=== PATIENT | male | born 1965 | race Caucasian/White ===

== ENCOUNTER 2018-09-17 08:25 | Day surgery (SDC) | payer OTHER ==
[2018-09-16 14:07] VITALS: BMI 38.7
[2018-09-17 09:51] VITALS: TEMP 97.9
[2018-09-17 11:04] VITALS: BP 121/72; PULSE 56
--- NOTE | 2018-09-18 18:15 | PATH ---
Surgical Pathology Report Patient Name: JANELLE SANTOS [facility]. Rec. #: [id number] /Age/Gender: 1965 (Age: 53) / M Account: [id number] Location: ASU-ENDOSCOPY Taken: 09/17/2018 Received: 09/17/2018 Reported: 09/18/2018 Physicians: Bola Brooks D.O. Specimen(s) Received A: BX CECUM POLYP B: BX PROXIMAL TRANSVERSE COLON C: BX SIGMOID ERYTHEMA D: POLYP SIGMOID Clinical History Colon screening, followup colitis Postoperative diagnosis: Diverticulosis, polyps Final Diagnosis A. CECUM POLYP, BIOPSY: COLONIC MUCOSA WITH FOCAL SURFACE HYPERPLASTIC CHANGE. B. PROXIMAL TRANSVERSE COLON, BIOPSY: COLONIC MUCOSA WITH MILD ACUTE INFLAMMATION IN THE LAMINA PROPRIA. NEGATIVE FOR CRYPTITIS AND CRYPT ABSCESS. NO ARCHITECTURAL FEATURES OF CHRONICITY PRESENT. C. SIGMOID ERYTHEMA, BIOPSY: COLONIC MUCOSA WITH FOCAL RECENT HEMORRHAGE IN THE LAMINA PROPRIA. NEGATIVE FOR COLITIS. D. SEGMENT POLYP POLYPECTOMY: HYPERPLASTIC POLYP. Electronically Signed Francisco Lion M.D. Gross Description A. Received in formalin, labeled "polyp cecum" are 2 shay, irregular portions of soft tissue measuring 0.3 and 0.5 cm. in greatest dimension. The specimens are submitted in toto in one cassette. B. Received in formalin, labeled "proximal transverse colon" are 2 shay, irregular portions of soft tissue measuring 0.1 and 0.2 cm. in greatest dimension. The specimens are submitted in toto in one cassette. C. Received in formalin, labeled "sigmoid" are 2 shay, irregular portions of soft tissue measuring 0.1 and 0.2 cm. in greatest dimension. The specimens are submitted in toto in one cassette. D. Received in formalin, labeled "polyp sigmoid" is a shay, irregular portion of soft tissue measuring 0.2 cm. in greatest dimension. The specimen is submitted in toto in one cassette. 09/17/201809/17/2018
== END 2018-09-17 11:04 | disposition home or self-care (01) ==
LOC: JASU-ENDO 08:25
PROVIDERS: ATTEND Internal Medicine Gastroenterology
PROC: 0DBH8ZX Excision of Cecum, Via Natural or Artificial Opening Endoscopic, Diagnostic (ICD-10-PCS; 2018-09-17)
PROC: 0DBL8ZX Excision of Transverse Colon, Via Natural or Artificial Opening Endoscopic, Diagnostic (ICD-10-PCS; 2018-09-17)
PROC: 0DBN8ZX Excision of Sigmoid Colon, Via Natural or Artificial Opening Endoscopic, Diagnostic (ICD-10-PCS; 2018-09-17)
PROC: 0DBN8ZX Excision of Sigmoid Colon, Via Natural or Artificial Opening Endoscopic, Diagnostic (ICD-10-PCS; principal; 2018-09-17 09:00)
DX: Z12.11 Encounter for screening for malignant neoplasm of colon (principal); D12.5 Benign neoplasm of sigmoid colon; K63.89 Other specified diseases of intestine; K57.30 Diverticulosis of large intestine without perforation or abscess without bleeding; K63.5 Polyp of colon; I10 Essential (primary) hypertension; E78.00 Pure hypercholesterolemia, unspecified; E11.9 Type 2 diabetes mellitus without complications; J45.909 Unspecified asthma, uncomplicated
CPT/HCPCS: 88305-TC

== ENCOUNTER 2019-09-10 20:07 | Inpatient (IN) | payer OTHER ==
[2019-09-10 20:11] VITALS: BMI 38.0
--- NOTE | 2019-09-10 20:11 | PDOC ---
Rapid Medical Evaluation Time Seen by Provider: 09/10/19 20:08 Medical Evaluation: Allergies Allergy/AdvReac Type Severity Reaction Status Date / Time No Known Allergies Allergy Verified 06/08/18 13:22 09/10/19 20:09 Pt c/o: abd pain worse after having soft BM, + nausea/vomit x 2, no fever, no urinary complaints, decreased solid intake Pt on brief exam: vss, no cva tenderness, mild epigastric tenderness Pt ordered for: labs, ua, fluids Pt to proceed to the Discharge Disposition - Diagnosis Colitis - Discharge Dispostion Disposition: HOME Condition at time of disposition: Good - Referrals - Patient Instructions - Post Discharge Activity
[2019-09-10] MEDS ORDERED: SODIUM CHLORIDE 1,000 ML IV STA (20:12)
--- NOTE | 2019-09-10 21:10 | PDOC ---
History of Present Illness - General Chief Complaint: Pain Stated Complaint: ABD PAIN Time Seen by Provider: 09/10/19 20:08 History Source: Patient Exam Limitations: No Limitations - History of Present Illness Travel History: No Initial Comments: 09/10/19 21:05 HISTORY OF PRESENT ILLNESS: 54-year-old male presents emergency department for evaluation of epigastric pain, nausea and shortness of breath. Patient reports he called his primary doctor after he received a CAT scan yesterday and requested asthma medication but was told if he was having asthma symptoms he should come to the emergency department. Patient did not feel that he needed to be in the emergency department and went home to have dinner. He drank soup for dinner but began to feel epigastric pain and bloating. He reported he had a large bowel movement this morning which helped relieve his pain initially and then vomited relieving the epigastric pain. He noticed progressively gotten more short of breath throughout the day today. He denies fevers, chills, chest pain, dysuria, hematuria, urinary frequency, rectal bleeding or diarrhea. No recent travel or sick contacts. PAST MEDICAL HISTORY: NIDDM, hypertension, hyperlipidemia, asthma SURGICAL HISTORY: Hernia repair see HPI ALLERGIES: No known drug allergies REVIEW OF SYSTEMS General/Constitutional: Denies fever or chills. Denies weakness, weight change. HEENT: Denies change in vision. Denies ear pain or discharge. Denies sore throat. Cardiovascular: Denies chest pain or shortness of breath. Respiratory: See HPI Gastrointestinal: See HPI Genitourinary: Denies dysuria, frequency, or change in urination. Musculoskeletal: Denies joint or muscle swelling or pain. Denies neck or back pain. Skin and breasts: Denies rash or easy bruising. Neurologic: Denies headache, vertigo, loss of consciousness, or loss of sensation. Psychiatric: Denies depression or anxiety. Endocrine: Denies increased thirst. Denies abnormal weight change. Hematologic/Lymphatic: Denies anemia, easy bleeding, or history of blood clots. Allergic/Immunologic: Denies hives or skin allergy. Denies latex allergy. PHYSICAL EXAM General Appearance: Well-appearing, appropriately dressed. No apparent distress , no intoxication. HEENT: EOMI, PERRLA, normal ENT inspection, normal voice, TMs normal, pharynx normal. No conjunctival pallor. No photophobia, scleral icterus. Neck: Supple. Trachea midline. No tenderness, rigidity, carotid bruit, stridor , lymphadenopathy, or thyromegaly. Respiratory/Chest: Lungs diminished on left side. No chest tenderness, respiratory distress, accessory muscle use. Diffuse wheezing present. No crackles, rales, rhonchi, stridor, dullness. Tachypnea present upon exam. Cardiovascular: RRR. S1, S2. No JVD, murmur, bradycardia, tachycardia. Vascular Pulses: Dorsalis-Pedis (R): 2+, Dorsalis-Pedis (L): 2+ Gastrointestinal/Abdominal: Normal bowel sounds. Abdomen soft, non-distended. Epigastric tenderness without guarding. No organomegaly, pulsatile mass, guarding, hernia, hepatomegaly, splenomegaly. Lymphatic: No adenopathy, tenderness. Musculoskeletal/Extremities: Normal inspection. FROM of all extremities, normal capillary refill. Pelvis Stable. No CVA tenderness. No tenderness to extremities, pedal edema, swelling, erythema or deformity. Integumentary: Appropriate color, warm. +diaphoresis. No cyanosis, erythema, jaundice or rash Neurologic: machine dyer II-XII intact. Fully oriented, alert. Appropriate mood/affect. Motor strength 5/5. No appreciable EOM palsy, facial droop or sensory deficit. 09/11/19 02:10 Past History - Past Medical History Allergies/Adverse Reactions: Allergies Allergy/AdvReac Type Severity Reaction Status Date / Time No Known Allergies Allergy Verified 09/10/19 20:11 Home Medications: Ambulatory Orders Albuterol Sulfate Inhaler - [Ventolin HFA Inhaler -] 1 - 2 inh PO Q4H 06/08/18 Aspirin [ASA -] 81 mg PO DAILY 06/08/18 Atorvastatin Ca [Lipitor] 10 mg PO HS 06/08/18 Budesonide/Formeterol Fumarate [SYMBICORT 160/4.5mcg -] 1 inh PO BID 06/08/18 Hydrochlorothiazide [Hctz -] 25 mg PO DAILY 06/08/18 Lisinopril [Prinivil] 20 mg PO DAILY 06/08/18 metFORMIN HCL [Metformin HCl] 850 mg PO BID 06/08/18 Salmeterol/Fluticasone [Advair 100Mcg/50Mcg -] 1 inh PO BID 09/11/19 Anemia: No Asthma: Yes Cancer: No Cardiac Disorders: No CVA: No COPD: No CHF: No Dementia: No Diabetes: Yes Dialysis: Yes GI Disorders: Yes (DIVERTICULITIS) Disorders: No HTN: Yes Hypercholesterolemia: Yes Liver Disease: No Seizures: No Thyroid Disease: No - Surgical History Abdominal Surgery: Yes Appendectomy: No Cardiac Surgery: No Cholecystectomy: No Lung Surgery: No Neurologic Surgery: No Orthopedic Surgery: Yes (LEFT KNEE ARTHROSCOPY) - Psycho Social/Smoking Cessation Hx Smoking History: Never smoked Have you smoked in the past 12 months: No If you are a former smoker, when did you quit?: many years ago Hx Alcohol Use: Yes (rare) Drug/Substance Use Hx: Yes (MARIJUANA) Substance Use Type: None Hx Substance Use Treatment: No *Physical Exam - Vital Signs Last Vital Signs Temp Pulse Resp BP Pulse Ox 98.0 F 79 18 132/79 97 09/10/19 20:08 09/10/19 20:08 09/10/19 20:08 09/10/19 20:08 09/10/19 20:08 ED Treatment Course - LABORATORY CBC & Chemistry Diagram: 09/11/19 05:55 09/11/19 05:55 - RADIOLOGY Radiology Studies Ordered: Category Date Time Status CHEST PA & LAT [RAD] Stat Radiology 09/10/19 20:51 Ordered Medical Decision Making - Medical Decision Making 09/10/19 21:09 A/P: 54-year-old male with epigastric pain, nausea and shortness of breath As patient is diabetic with hypertension high cholesterol I cannot exclude cardiac involvement at this time. Differential diagnosis includes but is not limited to pneumonia, hiatal hernia, pulmonary embolism, ACS, arrhythmia, obstruction, pancreatitis Labs including lipase, cardiac profile and d-dimer Chest x-ray EKG Combivent nebulizers x4 Reassess 09/11/19 01:56 EKG sinus rhythm with rate of 62. Normal intervals present. QTc 460 ms. Normal axis. No ischemic changes noted. CT of the abdomen and pelvis is read by imaging on-call: Uncomplicated mild to moderate ascending colitis may be due to infection or Crohn's disease. CTA of the chest as read by imaging on-call: No evidence of PE but there was mild suboptimal opacification of the pulmonary arteries. There is no aortic aneurysm or dissection. Heart size is normal. The trachea and bronchi are patent. There is no pleural or pericardial effusion. Lungs are clear. No fractures identified. The upper abdominal structures are normal. Blood cultures with lactate Flagyl 500 mg IV now Levaquin 500 mg Contact hospitalist service for admission. 09/11/19 01:57 Laboratory Tests 09/10/19 09/10/19 09/10/19 22:10 22:10 22:10 WBC 20.2 H Hgb 15.1 Hct 44.9 Plt Count 312 D D-Dimer Sodium 138 Potassium 4.3 Chloride 100 Carbon Dioxide 29 BUN 18.9 H Creatinine 0.9 Est GFR (CKD-EPI)NonAf 97.85 Random Glucose 139 H Calcium 9.9 Magnesium 1.8 Total Bilirubin 0.8 AST 19 ALT 29 Alkaline Phosphatase 84 Creatine Kinase 117 Troponin I < 0.02 B-Natriuretic Peptide Total Protein 7.4 Albumin 3.9 Lipase 45 L 09/10/19 09/10/19 22:10 22:10 WBC Hgb Hct Plt Count D-Dimer 879 H Sodium Potassium Chloride Carbon Dioxide BUN Creatinine Est GFR (CKD-EPI)NonAf Random Glucose Calcium Magnesium Total Bilirubin AST ALT Alkaline Phosphatase Creatine Kinase Troponin I B-Natriuretic Peptide 252.4 H Total Protein Albumin Lipase Urinalysis is unremarkable. Discharge - Discharge Information Problems reviewed: Yes Clinical Impression/Diagnosis: Colitis - Follow up/Referral - Patient Discharge Instructions - Post Discharge Activity
[2019-09-10] MEDS ORDERED: ALBUTEROL SO4 2.5/IPRATROPIUM 0.5 INH SOL 3 ML VIAL.NEB. NEB ONE (21:58)
[2019-09-10] MEDS: ALBUTEROL SO4 2.5/IPRATROPIUM 0.5 INH SOL 3 ML VIAL.NEB. NEB SCH ×2 (22:00→22:15)
[2019-09-10 22:25] LABS: BASO % 1.3 % (0-2.0); EOS % 0.2 % (0-4.5); HEMATOCRIT 44.9 % (35.4-49); HEMOGLOBIN 15.1 GM/dL (11.7-16.9); MCH 30.3 pg (25.7-33.7); MCHC 33.5 g/dl (32.0-35.9); MEAN CELL VOLUME 90.4 fl (80-96); MEAN PLT VOLUME 8.2 fl (7.5-11.1); MONO % 4.2 % (3.8-10.2); NEUT % 79.3 % (42.8-82.8); PLATELET COUNT 312 K/MM3 (134-434); RBC 4.97 M/mm3 (4.00-5.60); RDW 13.7 % (11.9-15.9); WHITE BLOOD COUNT 20.2 K/mm3 (4.0-10.0)
[2019-09-10 22:55] LABS: ALBUMIN 3.9 g/dl (3.4-5.0); BILIRUBIN,TOTAL 0.8 mg/dL (0.2-1); BLOOD UREA NITROGEN 18.9 mg/dL (7-18); CALCIUM 9.9 mg/dL (8.5-10.1); CREATININE 0.9 mg/dL (0.55-1.3); POTASSIUM 4.3 mmol/L (3.5-5.1); TOT PROT 7.4 g/dl (6.4-8.2)
[2019-09-10 22:56] LABS: MAGNESIUM 1.8 mg/dL (1.8-2.4)
[2019-09-10 23:25] LABS: PLATELET ESTIMATE NORMAL
[2019-09-11 00:21] LABS: PH,URINE 8.5 (5.0-8.0); URINE APPEARANCE CLEAR; URINE BILIRUBIN NEGATIVE (NEGATIVE); URINE COLOR YELLOW; URINE GLUCOSE (UA) NEGATIVE (NEGATIVE); URINE KETONE 2+ (NEGATIVE); URINE LEUK ESTERASE NEGATIVE (NEGATIVE); URINE NITRITE NEGATIVE (NEGATIVE); URINE PROTEIN NEGATIVE (NEGATIVE); URINE UROBILINOGEN 0.2 mg/dL (0.2-1.0)
--- NOTE | 2019-09-11 02:30 | PN ---
Teaching Attending Note Name of Resident: Sunny Brannon ATTENDING PHYSICIAN STATEMENT I saw and evaluated the patient. I reviewed the resident's note and discussed the case with the resident. I agree with the resident's findings and plan as documented. SUBJECTIVE: Patient is a 54 year old man with PMH of NIDDM, Hypertension, Hyperlipidemia, Lung nodule and Asthma presents to the ER for evaluation of epigastric pain, nausea and shortness of breath. Patient reports he called his primary doctor after he received a CAT scan yesterday and requested asthma medication but was told if he was having asthma symptoms he should come to the emergency department. Patient did not feel that he needed to be in the emergency department and went home to have dinner. He drank soup for dinner but began to feel epigastric pain and bloating. He reported he had a large bowel movement this morning which helped relieve his pain initially and then vomited relieving the epigastric pain. He noticed progressively gotten more short of breath throughout the day today. Smokes marijuana. FH of asthma, DM and lung cancer. He denies fevers, chills, chest pain, dysuria, hematuria, urinary frequency, rectal bleeding or diarrhea. No recent travel or sick contacts. Had a normal colonoscopy last year. OBJECTIVE: Alert Vital Signs Period Temp Pulse Resp BP Sys/Dykes Pulse Ox Last 24 Hr 98.0 F 79 18 132/79 97 HEENT: No Jaundice, eye redness or discharge, PERRLA, EOMI. Normocephalic, atraumatic. External ears are normal and hearing is grossly intact. No nasal discharge. Neck: Supple, nontender. No palpable adenopathy or thyromegaly. No JVD Chest: Good effort. Clear to auscultation and percussion. Heart: Regular. No S3, rub or murmur Abdomen: Not distended, soft, epigastric tenderness and no HSM. No rebound or guarding. Normal bowel sounds. Ext: Peripheral pulses intact. No leg edema. Skin: Warm and dry. No petechiae, rash or ecchymosis. Neuro: Alert. Oriented x3. CN 2-12 grossly intact. Sensation grossly intact in all four extremities and DTR are symmetric. Psych: Appropriate mood and affect. Good insight. Current Medications Generic Name Dose Route Start Last Admin Trade Name Freq PRN Reason Stop Dose Admin Enoxaparin Sodium 40 mg 09/11/19 10:00 Lovenox - SQ DAILY [facility] Sodium Chloride 1,000 mls @ 100 mls/hr 09/11/19 03:00 Normal Saline - IV ASDIR [facility] Insulin Aspart 0 vial 09/11/19 07:00 Novolog Vial Sliding Scale - SQ TIDAC [facility] Protocol Home Medications Medication Instructions Recorded Albuterol Sulfate Inhaler - 1 - 2 inh PO Q4H 06/08/18 [Ventolin HFA Inhaler -] Aspirin [ASA -] 81 mg PO DAILY 06/08/18 Atorvastatin Ca [Lipitor] 10 mg PO HS 06/08/18 Budesonide/Formeterol Fumarate 1 inh PO BID 06/08/18 [SYMBICORT 160/4.5mcg -] Hydrochlorothiazide [Hctz -] 25 mg PO DAILY 06/08/18 Lisinopril [Prinivil] 20 mg PO DAILY 06/08/18 metFORMIN HCL [Metformin HCl] 850 mg PO BID 06/08/18 Abnormal Lab Results 09/10/19 09/10/19 09/10/19 22:10 22:10 22:10 WBC 20.2 H Absolute Neuts (auto) 16.0 H Monocytes % (Manual) 1 L D D-Dimer BUN 18.9 H Random Glucose 139 H B-Natriuretic Peptide 252.4 H Lipase 45 L Urine pH Urine Ketones 09/10/19 09/10/19 22:10 23:55 WBC Absolute Neuts (auto) Monocytes % (Manual) D-Dimer 879 H BUN Random Glucose B-Natriuretic Peptide Lipase Urine pH 8.5 H D Urine Ketones 2+ H ASSESSMENT AND PLAN: 1. Colitis - CT of the abdomen and pelvis is read by imaging on-call showed "uncomplicated mild to moderate ascending colitis which may be due to infection or Crohn's disease. CTA of the chest as read by imaging on-call: No evidence of PE but there was mild suboptimal opacification of the pulmonary arteries. There is no aortic aneurysm or dissection. Heart size is normal. The trachea and bronchi are patent. There is no pleural or pericardial effusion. Lungs are clear. No fractures identified. The upper abdominal structures are normal." Patient started on Flagyl 500 mg IV now Levaquin 500 mg and IV NS. EKG shows NSR with no ischemic changes. Will continue comprehensive care for all of patients comorbid conditions. 2. DM For now, we will hold the home diabetes drugs and implement sliding scale insulin regimen. Provide comprehensive diabetes care with patient teaching and counseling about the importance of adherence to prescribed diabetes regimen, euglycemia, eye care and foot care. 3. Obesity Counseled on the risks associated with obesity. Will provide patient all the necessary assistance, counseling and positive reinforcement to facilitate weight loss. Consult commercial tire service technician. 4. Hypertension - Restart suitable outpatient antihypertensive drugs when clinically appropriate. Revise regimen to ensure [id number] excellent BP control and credit counselor patient on the injurious effects of uncontrolled hypertension. Nonpharmacologic measures to control hypertension like weight loss , salt restriction and exercise discussed. Importance of adherence to treatment regimen and attainment of normotension emphasized. 5. DVT prophylaxis - Lovenox 40 mg SQ q 24 hours. 6. Advance directives - Full code
--- NOTE | 2019-09-11 03:04 | HP ---
CHIEF COMPLAINT: Abdominal Pain PCP: Dr. Ilene Bello HISTORY OF PRESENT ILLNESS: A 54 y/o F with a PMHx of HTN, HLD, DM, Asthma, who presents after experiencing 8/10 midepigastric achyness after eating soup at 10pm on sunday. Pt notes the pain is associated with bloating, and improves with vomiting and defecating. He had 2 bouts of nbnb emesis and a bm consistent of soft stool. He is able to pass flatus which helps with the pain as well. He admits to sob due to the pain, cold sweats, and loss of appetite. He hasn't eaten anything since then. His hx is notable for having an episode of colitis in may of 2018 and a colonoscopy that was normal shortly after that. He denies any GERD, fevers, back pain, calf pain, dysuria, diarrhea, constipation, or hematuria. He was sent here by his PCP (Dr. Bello) a week ago to follow up a 5mm pulmonary nodule and due to his asthma symptoms. ER course was notable for: (1) ekg- nsr lipase- 45 (2) trop negative, d dimer- 879, cta negative for PE (3) CT abd- colitis, Recent Travel: denies PAST MEDICAL HISTORY: refer to HPI PAST SURGICAL HISTORY: inguinal hernia repair (20 y/o), meniscal tear repair ( 2016) Social History: Smoking: marijuana 1/wk Alcohol: denies Drugs: denies Allergies No Known Allergies Allergy (Verified 09/10/19 20:11) HOME MEDICATIONS: Home Medications Medication Instructions Recorded Albuterol Sulfate Inhaler - 1 - 2 inh PO Q4H 06/08/18 [Ventolin HFA Inhaler -] Aspirin [ASA -] 81 mg PO DAILY 06/08/18 Atorvastatin Ca [Lipitor] 10 mg PO HS 06/08/18 Budesonide/Formeterol Fumarate 1 inh PO BID 06/08/18 [SYMBICORT 160/4.5mcg -] Hydrochlorothiazide [Hctz -] 25 mg PO DAILY 06/08/18 Lisinopril [Prinivil] 20 mg PO DAILY 06/08/18 metFORMIN HCL [Metformin HCl] 850 mg PO BID 06/08/18 REVIEW OF SYSTEMS negative except those listed above PHYSICAL EXAMINATION Vital Signs - 24 hr 09/10/19 20:08 Temperature 98.0 F Pulse Rate 79 Respiratory 18 Rate Blood Pressure 132/79 O2 Sat by Pulse 97 Oximetry (%) GENERAL: Awake, alert, and fully oriented, in no acute distress. HEAD: Normal with no signs of trauma. EYES: Pupils equal, round and reactive to light, extraocular movements intact, sclera anicteric, conjunctiva clear. opthalmoscopic exam showing no AV nicking, cotton wool exudates, no erythema. EARS, NOSE, THROAT: Ears normal, nares patent, oropharynx clear without exudates. NECK: Normal range of motion, supple without lymphadenopathy, JVD, or masses. LUNGS: poor air entry that improved with chest pt HEART: Regular rate and rhythm, normal S1 and S2 without murmur, rub or gallop. ABDOMEN: Soft, nontympanitic, not distended, hypoactive bowel sounds, midepigastric tenderness to palpation, no pulsatile mass present, MUSCULOSKELETAL: Normal range of motion at all joints. No bony deformities or tenderness. UPPER EXTREMITIES: 2+ pulses, warm, well-perfused. No peripheral edema. LOWER EXTREMITIES: 2+ pulses, warm, well-perfused. No calf tenderness. No peripheral edema. Laboratory Results - last 24 hr 09/10/19 09/10/19 09/10/19 22:10 22:10 22:10 WBC 20.2 H RBC 4.97 Hgb 15.1 Hct 44.9 MCV 90.4 MCH 30.3 MCHC 33.5 RDW 13.7 Plt Count 312 D MPV 8.2 Absolute Neuts (auto) 16.0 H Neutrophils % 79.3 D Neutrophils % (Manual) 77.0 Band Neutrophils % 0.0 Lymphocytes % 15.0 D Lymphocytes % (Manual) 16.0 D Monocytes % 4.2 Monocytes % (Manual) 1 L D Eosinophils % 0.2 D Eosinophils % (Manual) 0.0 Basophils % 1.3 Basophils % (Manual) 0.0 Myelocytes % (Man) 0 Promyelocytes % (Man) 0 Blast Cells % (Manual) 0 Nucleated RBC % 0 Metamyelocytes 0 Platelet Estimate Normal D-Dimer Sodium 138 Potassium 4.3 Chloride 100 Carbon Dioxide 29 Anion Gap 8 BUN 18.9 H Creatinine 0.9 Est GFR (CKD-EPI)AfAm 113.41 Est GFR (CKD-EPI)NonAf 97.85 Random Glucose 139 H Calcium 9.9 Magnesium 1.8 Total Bilirubin 0.8 AST 19 ALT 29 Alkaline Phosphatase 84 Creatine Kinase 117 Troponin I < 0.02 B-Natriuretic Peptide Total Protein 7.4 Albumin 3.9 Lipase 45 L Urine Color Urine Appearance Urine pH Ur Specific [place] Urine Protein Urine Glucose (UA) Urine Ketones Urine Blood Urine Nitrite Urine Bilirubin Urine Urobilinogen Ur Leukocyte Esterase ASSESSMENT/PLAN: A 54 y/o F with a PMHx of HTN, HLD, DM, Asthma, who presents after experiencing 8/10 midepigastric achyness after eating soup at 10pm on sunday. #Acute colitis - CT abd- colitis - lipase 45 - npo bowel rest, IVF - stool o&p, c&s, calprotectin - c/w IV levaquin 500 and flagyl 500 - afebrile - leukocytosis 20.2 will continue to trend - Mg, Phos - recommend high residue diet to prevent reocurrence #R/O PE - d dimer 879 - CTA negative for PE #Pulmonary nodule - recent Chest CT showing 3mm nodule, rt renal cyst, diverticulosis, atelectasis in lingula follow up with pulmonary and pcp - no change since previous - pt has hx of lung ca in mother #Asthma - Albuterol PRN #Starvation ketosis - UA 2+ketones - UA 8.5pH - pt hasnt eaten in 2 days - rpt in am and follow up with pcp if persists despite po intake #DM - ISS - TIDAC #HTN - continue lisinopril 20, HCTZ 25 PO daily #HLD - continue statin Visit type - Emergency Visit Emergency Visit: Yes ED Registration Date: 09/11/19 Care time: The patient presented to the Emergency Department on the above date and was hospitalized for further evaluation of their emergent condition. - New Patient This patient is new to me today: Yes Date on this admission: 09/11/19 - Critical Care Critical Care patient: No ATTENDING PHYSICIAN STATEMENT I saw and evaluated the patient. I reviewed the resident's note and discussed the case with the resident. I agree with the resident's findings and plan as documented. SUBJECTIVE: OBJECTIVE: ASSESSMENT AND PLAN:
[2019-09-11] MEDS: SODIUM CHLORIDE 1,000 ML IV SCH ×2 (03:32→18:04)
[2019-09-11 06:12] LABS: HEMATOCRIT 41.5 % (35.4-49); HEMOGLOBIN 14.1 GM/dL (11.7-16.9); MCH 30.3 pg (25.7-33.7); MCHC 34.1 g/dl (32.0-35.9); MEAN PLT VOLUME 7.9 fl (7.5-11.1); PLATELET COUNT 307 K/MM3 (134-434); RBC 4.66 M/mm3 (4.00-5.60); RDW 13.8 % (11.9-15.9); WHITE BLOOD COUNT 16.4 K/mm3 (4.0-10.0)
[2019-09-11 06:29] LABS: ALBUMIN 3.7 g/dl (3.4-5.0); BILIRUBIN,TOTAL 0.6 mg/dL (0.2-1); CREATININE 0.9 mg/dL (0.55-1.3); PHOSPHOROUS 3.4 mg/dL (2.5-4.9); POTASSIUM 3.7 mmol/L (3.5-5.1); TOT PROT 6.9 g/dl (6.4-8.2)
[2019-09-11] MEDS: INSULIN SLIDING SCALE (NOVOLOG) 1 VIAL SQ SCH ×3 (06:49→16:43)
[2019-09-11] MEDS ORDERED: INSULIN SLIDING SCALE (NOVOLOG) 1 VIAL SQ SCH (07:00)
[2019-09-11] MEDS ORDERED: ENOXAPARIN NA (PORCINE) 40 MG/0.4 ML DISP.SYRIN SQ ONE (09:56)
[2019-09-11] MEDS: ENOXAPARIN NA (PORCINE) 40 MG/0.4 ML DISP.SYRIN SQ SCH (10:05)
--- NOTE | 2019-09-11 12:38 | EKG ---
Test Reason : Blood Pressure : / mmHG Vent. Rate : 062 BPM Atrial Rate : 062 BPM P-R Int : 146 ms QRS Dur : 100 ms QT Int : 454 ms P-R-T Axes : 013 066 041 degrees QTc Int : 460 ms NORMAL SINUS RHYTHM NORMAL ECG WHEN COMPARED WITH ECG OF 09-JUN-2018 14:51, NO SIGNIFICANT CHANGE WAS FOUND Confirmed by GIANNA WILCOX MD ([id number]) on 09/11/2019 12:38:02 PM Referred By: Confirmed By:GIANNA WILCOX MD
--- NOTE | 2019-09-11 13:46 | PN ---
Physical Exam: SUBJECTIVE: Patient seen and examined in the ED awaiting bed assignment. denies any nausea/vomiting or abdominal pain. OBJECTIVE: Patient is a 54 year old male with a past medical history of colitis, hypertension, hyperlipidemia, diabetes and asthma who presented to the ED with abdominal pain and found to have acute right sided colitis on ct scan. Vital Signs Period Temp Pulse Resp BP Sys/Dykes Pulse Ox Last 24 Hr 98.0 F-98.0 F 60-79 18-20 104-132/57-79 97-98 GENERAL: The patient is awake, alert, and fully oriented, in no acute distress. HEAD: Normal with no signs of trauma. EYES: PERRL, extraocular movements intact, sclera anicteric, conjunctiva clear. No ptosis. ENT: Ears normal, nares patent, oropharynx clear without exudates, moist mucous membranes. NECK: Trachea midline, full range of motion, supple. LUNGS: Breath sounds equal, clear to auscultation bilaterally, no wheezes, no crackles, no accessory muscle use. HEART: Regular rate and rhythm ABDOMEN: Soft, nontender, nondistended, normoactive bowel sounds, no guarding, no rebound, no hepatosplenomegaly, no masses. EXTREMITIES: no edema. NEUROLOGICAL: Normal speech, gait not observed. PSYCH: Normal mood, normal affect. SKIN: Warm, dry, normal turgor, no rashes or lesions noted Laboratory Results - last 24 hr 09/10/19 09/10/19 09/10/19 22:10 22:10 22:10 WBC 20.2 H RBC 4.97 Hgb 15.1 Hct 44.9 MCV 90.4 MCH 30.3 MCHC 33.5 RDW 13.7 Plt Count 312 D MPV 8.2 Absolute Neuts (auto) 16.0 H Neutrophils % 79.3 D Neutrophils % (Manual) 77.0 Band Neutrophils % 0.0 Lymphocytes % 15.0 D Lymphocytes % (Manual) 16.0 D Monocytes % 4.2 Monocytes % (Manual) 1 L D Eosinophils % 0.2 D Eosinophils % (Manual) 0.0 Basophils % 1.3 Basophils % (Manual) 0.0 Myelocytes % (Man) 0 Promyelocytes % (Man) 0 Blast Cells % (Manual) 0 Nucleated RBC % 0 Metamyelocytes 0 Platelet Estimate Normal D-Dimer Sodium 138 Potassium 4.3 Chloride 100 Carbon Dioxide 29 Anion Gap 8 BUN 18.9 H Creatinine 0.9 Est GFR (CKD-EPI)AfAm 113.41 Est GFR (CKD-EPI)NonAf 97.85 POC Glucometer Random Glucose 139 H Calcium 9.9 Phosphorus Magnesium 1.8 Total Bilirubin 0.8 AST 19 ALT 29 Alkaline Phosphatase 84 Creatine Kinase 117 Troponin I < 0.02 B-Natriuretic Peptide Total Protein 7.4 Albumin 3.9 Lipase 45 L Urine Color Urine Appearance Urine pH Ur Specific [place] Urine Protein Urine Glucose (UA) Urine Ketones Urine Blood Urine Nitrite Urine Bilirubin Urine Urobilinogen Ur Leukocyte Esterase 09/10/19 09/10/19 09/10/19 22:10 22:10 23:55 WBC RBC Hgb Hct MCV MCH MCHC RDW Plt Count MPV Absolute Neuts (auto) Neutrophils % Neutrophils % (Manual) Band Neutrophils % Lymphocytes % Lymphocytes % (Manual) Monocytes % Monocytes % (Manual) Eosinophils % Eosinophils % (Manual) Basophils % Basophils % (Manual) Myelocytes % (Man) Promyelocytes % (Man) Blast Cells % (Manual) Nucleated RBC % Metamyelocytes Platelet Estimate D-Dimer 879 H Sodium Potassium Chloride Carbon Dioxide Anion Gap BUN Creatinine Est GFR (CKD-EPI)AfAm Est GFR (CKD-EPI)NonAf POC Glucometer Random Glucose Calcium Phosphorus Magnesium Total Bilirubin AST ALT Alkaline Phosphatase Creatine Kinase Troponin I B-Natriuretic Peptide 252.4 H Total Protein Albumin Lipase Urine Color Yellow Urine Appearance Clear Urine pH 8.5 H D Ur Specific [place] 1.025 Urine Protein Negative Urine Glucose (UA) Negative Urine Ketones 2+ H Urine Blood Negative Urine Nitrite Negative Urine Bilirubin Negative Urine Urobilinogen 0.2 Ur Leukocyte Esterase Negative 09/11/19 09/11/19 09/11/19 05:55 05:55 11:06 WBC 16.4 H RBC 4.66 Hgb 14.1 Hct 41.5 MCV 89.0 MCH 30.3 MCHC 34.1 RDW 13.8 Plt Count 307 MPV 7.9 Absolute Neuts (auto) Neutrophils % Neutrophils % (Manual) Band Neutrophils % Lymphocytes % Lymphocytes % (Manual) Monocytes % Monocytes % (Manual) Eosinophils % Eosinophils % (Manual) Basophils % Basophils % (Manual) Myelocytes % (Man) Promyelocytes % (Man) Blast Cells % (Manual) Nucleated RBC % Metamyelocytes Platelet Estimate D-Dimer Sodium 138 Potassium 3.7 Chloride 101 Carbon Dioxide 29 Anion Gap 7 L BUN 16.0 Creatinine 0.9 Est GFR (CKD-EPI)AfAm 113.41 Est GFR (CKD-EPI)NonAf 97.85 POC Glucometer 151 Random Glucose 143 H Calcium 9.0 Phosphorus 3.4 Magnesium 2.0 Total Bilirubin 0.6 AST 9 L ALT 25 Alkaline Phosphatase 75 Creatine Kinase Troponin I B-Natriuretic Peptide Total Protein 6.9 Albumin 3.7 Lipase Urine Color Urine Appearance Urine pH Ur Specific [place] Urine Protein Urine Glucose (UA) Urine Ketones Urine Blood Urine Nitrite Urine Bilirubin Urine Urobilinogen Ur Leukocyte Esterase 09/11/19 13:20 WBC RBC Hgb Hct MCV MCH MCHC RDW Plt Count MPV Absolute Neuts (auto) Neutrophils % Neutrophils % (Manual) Band Neutrophils % Lymphocytes % Lymphocytes % (Manual) Monocytes % Monocytes % (Manual) Eosinophils % Eosinophils % (Manual) Basophils % Basophils % (Manual) Myelocytes % (Man) Promyelocytes % (Man) Blast Cells % (Manual) Nucleated RBC % Metamyelocytes Platelet Estimate D-Dimer Sodium Potassium Chloride Carbon Dioxide Anion Gap BUN Creatinine Est GFR (CKD-EPI)AfAm Est GFR (CKD-EPI)NonAf POC Glucometer 133 Random Glucose Calcium Phosphorus Magnesium Total Bilirubin AST ALT Alkaline Phosphatase Creatine Kinase Troponin I B-Natriuretic Peptide Total Protein Albumin Lipase Urine Color Urine Appearance Urine pH Ur Specific [place] Urine Protein Urine Glucose (UA) Urine Ketones Urine Blood Urine Nitrite Urine Bilirubin Urine Urobilinogen Ur Leukocyte Esterase Active Medications Generic Name Dose Route Start Last Admin Trade Name Freq PRN Reason Stop Dose Admin Enoxaparin Sodium 40 mg 09/11/19 10:00 09/11/19 10:05 Lovenox - SQ 40 mg DAILY TJ Administration Sodium Chloride 1,000 mls @ 100 mls/hr 09/11/19 03:00 09/11/19 03:32 Normal Saline - IV 100 mls/hr ASDIR TJ Administration Metronidazole 500 mg in 100 mls @ 100 mls/hr 09/11/19 10:00 09/11/19 10:05 Flagyl 500mg Premixed Ivpb - IVPB 100 mls/hr Q8H-IV TJ Administration Levofloxacin 500 mg in 100 mls @ 100 mls/hr 09/12/19 06:00 Levaquin 500 Mg Premixed Ivpb - IVPB DAILY@0600 [facility] Protocol Insulin Aspart 1 vial 09/11/19 07:00 09/11/19 11:14 Novolog Vial Sliding Scale - SQ 2 unit TIDAC [facility] Administration Protocol ASSESSMENT/PLAN: Abdominal pain Acute colitis per CT imaging Patient without further abdominal pain, nausea or vomiting start trial of clears continue flagyl and levaquin monitor wbc with daily labs Gi consulted and recommendations appreciated. elevated d dimer PE ruled out with CTA Pulmonary nodule Recent Chest CT showing 3mm nodule, rt renal cyst, diverticulosis, atelectasis in lingula follow up with pulmonary and pcp Asthma not in acute exacerbation, allbuterol prn Diabetes controlled. on novolog Hypertension controlled, on lisinopril, hctz 50 HLD on statin Visit type - Emergency Visit Emergency Visit: Yes ED Registration Date: 09/11/19 Care time: The patient presented to the Emergency Department on the above date and was hospitalized for further evaluation of their emergent condition. - New Patient This patient is new to me today: Yes Date on this admission: 09/11/19 - Critical Care Critical Care patient: No - Discharge Referral Referred to [facility] No
[2019-09-11 19:46] LABS: EPI CELLS 0.4 /HPF (0-5/HPF); HYALINE CASTS 1 /lpf (0-8); URINE APPEARANCE CLEAR; URINE BACTERIA 0.8 /hpf (NEGATIVE); URINE BILIRUBIN NEGATIVE (NEGATIVE); URINE COLOR YELLOW; URINE GLUCOSE (UA) NEGATIVE (NEGATIVE); URINE KETONE NEGATIVE (NEGATIVE); URINE LEUK ESTERASE TRACE (NEGATIVE); URINE NITRITE NEGATIVE (NEGATIVE); URINE PROTEIN NEGATIVE (NEGATIVE); URINE RBC 2 /hpf (0-4); URINE WBC 0 /hpf (0-5)
--- NOTE | 2019-09-11 21:05 | CON.GI ---
Consult - Past Medical History Cardio/Vascular: Yes: HTN, Hyperlipdemia Pulmonary: Yes: Asthma Gastrointestinal: Yes: Other (RI) Musculoskeletal: Yes: Osteoarthritis Endocrine: Yes: Diabetes Mellitus - Past Surgical History Past Surgical History: Yes: Arthrosocopy (left knee), Hernia Repair (RI) - Alcohol/Substance Use Hx Alcohol Use: Yes (rare) History of Substance Use: reports: None - Smoking History Smoking history: Never smoked Have you smoked in the past 12 months: No If you are a former smoker, when did you quit?: many years ago - Social History Usual Living Arrangement: Other () ADL: Independent Occupation: [employer] History of Recent Travel: No Home Medications - Allergies Allergies/Adverse Reactions: Allergies Allergy/AdvReac Type Severity Reaction Status Date / Time No Known Allergies Allergy Verified 09/10/19 20:11 - Home Medications Home Medications: Ambulatory Orders Albuterol Sulfate Inhaler - [Ventolin HFA Inhaler -] 1 - 2 inh PO Q4H 06/08/18 Aspirin [ASA -] 81 mg PO DAILY 06/08/18 Atorvastatin Ca [Lipitor] 10 mg PO HS 06/08/18 Budesonide/Formeterol Fumarate [SYMBICORT 160/4.5mcg -] 1 inh PO BID 06/08/18 Hydrochlorothiazide [Hctz -] 25 mg PO DAILY 06/08/18 Lisinopril [Prinivil] 20 mg PO DAILY 06/08/18 metFORMIN HCL [Metformin HCl] 850 mg PO BID 06/08/18 Salmeterol/Fluticasone [Advair 100Mcg/50Mcg -] 1 inh PO BID 09/11/19 Physical Exam-GI Vital Signs: Vital Signs Temperature 97.8 F 09/11/19 17:45 Pulse Rate 68 09/11/19 17:45 Respiratory Rate 20 09/11/19 17:45 Blood Pressure 120/83 09/11/19 17:45 O2 Sat by Pulse Oximetry (%) 100 09/11/19 17:45 Labs: CBC, BMP 09/11/19 05:55 09/11/19 05:55
--- NOTE | 2019-09-11 21:09 | CON.GI ---
Consult Consult Specialty:: GI Referred by:: Hospitalist Service Reason for Consultation:: Abdominal pain - History of Present Illness Chief Complaint: upper abdominal pain History of Present Illness: 54M admitted thorough [facility] for evaluation of abdominal pain. Described the pain starting sunday evening, upper abdomen in location and associated with nausea and vomiting. He had some loose bowel movements as well. He underwent CTA of the chest to ? exclude PE and CT of the abdomen and pelvis that raised question of Right sided colitis. Had a similar episode of ? right sided colitis in 2018. he was evaluated by Dr. Shah at that time who fel that it reflected an episode of right sided ischemic coltis. He saw me in follow-up as outpatient. He underwent a follow-up colonoscopy that was unrevealing. Biopsy of the proximal transverse colon revealed mild acute colitis without chronicity. Nausea, vomiting has resolved. he currently denies abdominal pain. - History Source History Provided By: Patient, Medical Record - Past Medical History Cardio/Vascular: Yes: HTN, Hyperlipdemia Pulmonary: Yes: Asthma Gastrointestinal: Yes: Diverticulosis, Other (RIH) Musculoskeletal: Yes: Osteoarthritis Endocrine: Yes: Diabetes Mellitus - Past Surgical History Past Surgical History: Yes: Arthrosocopy (left knee), Hernia Repair (RIH) - Alcohol/Substance Use Hx Alcohol Use: Yes (rare) History of Substance Use: reports: None - Smoking History Smoking history: Never smoked Have you smoked in the past 12 months: No - Social History Usual Living Arrangement: Other () ADL: Independent 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 Place of : [facility] History of Recent Travel: No Home Medications - Allergies Allergies/Adverse Reactions: Allergies Allergy/AdvReac Type Severity Reaction Status Date / Time No Known Allergies Allergy Verified 09/10/19 20:11 - Home Medications Home Medications: Ambulatory Orders Albuterol Sulfate Inhaler - [Ventolin HFA Inhaler -] 1 - 2 inh PO Q4H 06/08/18 Aspirin [ASA -] 81 mg PO DAILY 06/08/18 Atorvastatin Ca [Lipitor] 10 mg PO HS 06/08/18 Budesonide/Formeterol Fumarate [SYMBICORT 160/4.5mcg -] 1 inh PO BID 06/08/18 Hydrochlorothiazide [Hctz -] 25 mg PO DAILY 06/08/18 Lisinopril [Prinivil] 20 mg PO DAILY 06/08/18 metFORMIN HCL [Metformin HCl] 850 mg PO BID 06/08/18 Salmeterol/Fluticasone [Advair 100Mcg/50Mcg -] 1 inh PO BID 09/11/19 Family Medical History Other Family History: Mother: : Pancreatic Ca, Dm II. Father: : 65: DM II. 7 siblings, one sister with narcolepsy, 1 brother has liver ca (alcoholic/ HCV) and history of colon polyps. 1 daughterL healthy. No family history of colon cancer, IBD Review of Systems - Review of Systems Constitutional: denies: Chills, Unintentional Wgt. Loss Cardiovascular: denies: Chest Pain Respiratory: denies: Cough Gastrointestinal: reports: Abdominal Pain, Diarrhea, Vomiting. denies: Constipation Physical Exam-GI Vital Signs: Vital Signs Temperature 97.8 F 09/11/19 17:45 Pulse Rate 68 09/11/19 17:45 Respiratory Rate 20 09/11/19 17:45 Blood Pressure 120/83 09/11/19 17:45 O2 Sat by Pulse Oximetry (%) 100 09/11/19 17:45 Constitutional: Yes: Calm Eyes: No: Sclera Icterus Cardiovascular: Yes: Regular Rate and Rhythm. No: Murmur Respiratory: Yes: CTA Bilaterally Gastrointestinal Inspection: No: Distention ...Auscultate: Yes: Normoactive Bowel Sounds ...Palpate: Yes: Soft. No: Hepatomegaly, Splenomegaly, Tenderness Edema: No (No LE edema) Neurological: Yes: Alert Labs: CBC, BMP 09/11/19 05:55 09/11/19 05:55 Problem List - Problems (1) Colitis Assessment/Plan: The epigastric pain does not fit a colitis piicture. He is currently pain free and had had no diarrhea. ? Resolved gastroenteritis Advance diet Continue Abx for now Given recurrence of right sided colitis episode and ? previous right sided ischemic colitis, Should have CTA of the abdomen to assess SMA. Would given him some time as he has already been given CTA dye load to ? exclude a PE. Code(s): K52.9 - NONINFECTIVE GASTROENTERITIS AND COLITIS, UNSPECIFIED
[2019-09-11] MEDS ORDERED: ATORVASTATIN CA 10 MG TABLET (FP) PO SCH (22:00)
[2019-09-11] MEDS: FLUTICASONE/SALMETEROL 100 MCG/50 MCG DISKUS IH SCH ×2 (22:47→23:00)
[2019-09-12] MEDS: SODIUM CHLORIDE 1,000 ML IV SCH ×2 (03:19→05:48)
[2019-09-12] MEDS: INSULIN SLIDING SCALE (NOVOLOG) 1 VIAL SQ SCH (06:09)
[2019-09-12 09:03] LABS: BASO % 0.3 % (0-2.0); HEMATOCRIT 41.7 % (35.4-49); MCH 30.2 pg (25.7-33.7); MCHC 33.5 g/dl (32.0-35.9); MEAN CELL VOLUME 90.3 fl (80-96); MEAN PLT VOLUME 8.5 fl (7.5-11.1); MONO % 6.5 % (3.8-10.2); NEUT % 62.2 % (42.8-82.8); PLATELET COUNT 283 K/MM3 (134-434); RBC 4.62 M/mm3 (4.00-5.60); RDW 13.7 % (11.9-15.9); WHITE BLOOD COUNT 12.8 K/mm3 (4.0-10.0)
[2019-09-12 09:31] LABS: ALBUMIN 3.4 g/dl (3.4-5.0); BILIRUBIN,TOTAL 0.9 mg/dL (0.2-1); BLOOD UREA NITROGEN 14.9 mg/dL (7-18); CALCIUM 8.7 mg/dL (8.5-10.1); CREATININE 0.9 mg/dL (0.55-1.3); POTASSIUM 3.8 mmol/L (3.5-5.1); TOT PROT 6.5 g/dl (6.4-8.2)
[2019-09-12] MEDS ORDERED: HYDROCHLOROTHIAZIDE 25 MG TABLET (FP) PO SCH (10:00)
[2019-09-12] MEDS ORDERED: BUDESONIDE/FORMETEROL FUMARATE 160/4.5 mcg INHALER IH SCH (10:00)
[2019-09-12] MEDS ORDERED: LISINOPRIL 20 MG TABLET (FP) PO SCH (10:00)
[2019-09-12] MEDS ORDERED: INSULIN (NOVOLOG) ASPART 100 UNITS/ML 10ML VIAL ONE (10:04)
--- NOTE | 2019-09-12 10:11 | PN.GI ---
GI Progress Note Subjective: No acute events States feeling well No abdominal pain Tolerating liquids - Objective Vital Signs: Vital Signs Temperature 97.9 F 09/12/19 04:53 Pulse Rate 64 09/12/19 04:53 Respiratory Rate 20 09/12/19 04:53 Blood Pressure 120/83 09/11/19 17:45 O2 Sat by Pulse Oximetry (%) 100 09/11/19 21:00 Constitutional: Calm Eyes: No: Sclera Icterus Cardiovascular: Yes: Regular Rate and Rhythm Respiratory: Yes: CTA Bilaterally Gastrointestinal Inspection: No: Scars ...Auscultate: Yes: Normoactive Bowel Sounds ...Palpate: Yes: Soft. No: Hepatomegaly, Splenomegaly, Tenderness Edema: No (No LE edema) Neurological: Yes: Alert Labs: CBC, BMP 09/12/19 07:25 09/12/19 07:25 Problem List - Problems (1) Colitis Assessment/Plan: Clinically appears well. No N/V, diarrhea or abdominal pain. ? resolved gastroenteritis Symptom improvement quite quick for ischemic colitis Advancing diet Given recurrence of ? inflammatory changes in the right colon, follow-up imaging with CTA of abdomen to assess SMA Code(s): K52.9 - NONINFECTIVE GASTROENTERITIS AND COLITIS, UNSPECIFIED
[2019-09-12] MEDS: ENOXAPARIN NA (PORCINE) 40 MG/0.4 ML DISP.SYRIN SQ SCH (10:19)
[2019-09-12 13:28] VITALS: BP 132/83; PULSE 60; TEMP 97.8
--- NOTE | 2019-09-12 15:16 | DS ---
Physical Exam: SUBJECTIVE: Patient seen and examined. for discharge today. OBJECTIVE: Patient is a 54 year old male with a past medical history of colitis, hypertension, hyperlipidemia, diabetes and asthma who presented to the ED with abdominal pain and found to have acute right sided colitis on ct scan. Vital Signs Period Temp Pulse Resp BP Sys/Dykes Pulse Ox Last 24 Hr 97.8 F-98.0 F 60-68 20-20 120-132/70-83 100-100 PHYSICAL EXAM GENERAL: The patient is awake, alert, and fully oriented, in no acute distress. HEAD: Normal with no signs of trauma. EYES: PERRL, extraocular movements intact, sclera anicteric, conjunctiva clear. No ptosis. ENT: Ears normal, nares patent, oropharynx clear without exudates, moist mucous membranes. NECK: Trachea midline, full range of motion, supple. LUNGS: Breath sounds equal, clear to auscultation bilaterally, no wheezes, no crackles, no accessory muscle use. HEART: Regular rate and rhythm ABDOMEN: Soft, nontender, nondistended, normoactive bowel sounds, no guarding, no rebound, no hepatosplenomegaly, no masses. EXTREMITIES: no edema. NEUROLOGICAL: Normal speech, gait not observed. PSYCH: Normal mood, normal affect. SKIN: Warm, dry, normal turgor, no rashes or lesions noted LABS Laboratory Results - last 24 hr 09/11/19 09/11/19 09/12/19 16:37 18:21 05:45 WBC RBC Hgb Hct MCV MCH MCHC RDW Plt Count MPV Absolute Neuts (auto) Neutrophils % Lymphocytes % Monocytes % Eosinophils % Basophils % Nucleated RBC % Sodium Potassium Chloride Carbon Dioxide Anion Gap BUN Creatinine Est GFR (CKD-EPI)AfAm Est GFR (CKD-EPI)NonAf POC Glucometer 174 137 Random Glucose Calcium Magnesium Total Bilirubin AST ALT Alkaline Phosphatase Total Protein Albumin TSH Urine Color Yellow Urine Appearance Clear Urine pH 6.0 D Ur Specific [place] 1.017 Urine Protein Negative Urine Glucose (UA) Negative Urine Ketones Negative Urine Blood Negative Urine Nitrite Negative Urine Bilirubin Negative Urine Urobilinogen 1.0 Ur Leukocyte Esterase Trace Urine WBC (Auto) 0 Urine RBC (Auto) 2 Urine Casts (Auto) 1 U Epithel Cells (Auto) 0.4 Urine Bacteria (Auto) 0.8 09/12/19 09/12/19 07:25 07:25 WBC 12.8 H RBC 4.62 Hgb 14.0 Hct 41.7 MCV 90.3 MCH 30.2 MCHC 33.5 RDW 13.7 Plt Count 283 MPV 8.5 Absolute Neuts (auto) 8.0 Neutrophils % 62.2 D Lymphocytes % 30.0 D Monocytes % 6.5 Eosinophils % 1.0 D Basophils % 0.3 Nucleated RBC % 0 Sodium 139 Potassium 3.8 Chloride 106 Carbon Dioxide 26 Anion Gap 7 L BUN 14.9 Creatinine 0.9 Est GFR (CKD-EPI)AfAm 113.41 Est GFR (CKD-EPI)NonAf 97.85 POC Glucometer Random Glucose 125 H Calcium 8.7 Magnesium 2.0 Total Bilirubin 0.9 AST 12 L ALT 22 Alkaline Phosphatase 70 Total Protein 6.5 Albumin 3.4 TSH 2.38 D Urine Color Urine Appearance Urine pH Ur Specific [place] Urine Protein Urine Glucose (UA) Urine Ketones Urine Blood Urine Nitrite Urine Bilirubin Urine Urobilinogen Ur Leukocyte Esterase Urine WBC (Auto) Urine RBC (Auto) Urine Casts (Auto) U Epithel Cells (Auto) Urine Bacteria (Auto) HOSPITAL COURSE: Date of Admission:09/11/19 Date of Discharge: 09/12/19 Minutes to complete discharge: 60 Discharge Summary Problems reviewed: Yes Reason For Visit: COLITIS Current Active Problems Colitis (Acute) Condition: Good - Instructions Diet, Activity, Other Instructions: Mr Mathis: You were admitted for abdominal pain and found to have possible right sided colitis. What is colitis? Colitis is inflammation of the colon. How is it treated? Treatment consists of antibiotics. During your stay you were given antibiotics intravenously and will be converted to antibiotics by mouth. as follows: Levaquin 500mg ONCE per day, take until 09/18/2019, you will need 6 more days Flagyl 500mg THREE times per day, take at 8am, 3pm an 8pm until 09/17/2019, take for 5 more days Next steps: You will need a follow up CAT SCAN of your abdomen to look at the arteries of your right colon further to see cause of recurrence of inflammatory changes in the colon. You can have this scheduled with your PCP or with Dr. Ryan. Thank you for allowing us to care for you. Please call me if you have any questions. Lisa Cassidy NP [facility] [phone] Referrals: Emilie Rosenberg [Primary Care Provider] - Disposition: HOME - Home Medications Comprehensive Discharge Medication List: Ambulatory Orders Albuterol Sulfate Inhaler - [Ventolin HFA Inhaler -] 1 - 2 inh PO Q4H 06/08/18 Aspirin [ASA -] 81 mg PO DAILY 06/08/18 Atorvastatin Ca [Lipitor] 10 mg PO HS 06/08/18 Budesonide/Formeterol Fumarate [SYMBICORT 160/4.5mcg -] 1 inh PO BID 06/08/18 Hydrochlorothiazide [Hctz -] 25 mg PO DAILY 06/08/18 Lisinopril [Prinivil] 20 mg PO DAILY 06/08/18 metFORMIN HCL [Metformin HCl] 850 mg PO BID 06/08/18 Budesonide/Formeterol Fumarate [SYMBICORT 160/4.5mcg -] 2 puff IH BID inhaler 09/12/19 Levofloxacin [Levaquin] 500 mg PO DAILY #6 tablet 09/12/19 Nebulizer Accessories [A.i.r.s. Nebulizer] 1 each MC BID #1 kit 09/12/19 Nebulizer Accessories [Adult Aerosol Mask] 1 each MC BID #1 each 09/12/19 metroNIDAZOLE [Flagyl -] 500 mg PO TID #15 tablet 09/12/19 This patient is new to me today: No Emergency Visit: Yes ED Registration Date: 09/11/19 Care time: The patient presented to the Emergency Department on the above date and was hospitalized for further evaluation of their emergent condition. Critical Care patient: No - Discharge Referral Referred to [facility] No
== END 2019-09-12 17:13 | disposition home or self-care (01) | DRG 246 ==
LOC: JER 20:07 → JERBED 09-11 02:20 → J6S 09-11 17:15
PROVIDERS: ADMIT Internal Medicine; ATTEND Nurse Practitioner Family
DX: K55.9 Vascular disorder of intestine, unspecified (principal); I10 Essential (primary) hypertension; E78.5 Hyperlipidemia, unspecified; E11.9 Type 2 diabetes mellitus without complications; R91.1 Solitary pulmonary nodule; J45.909 Unspecified asthma, uncomplicated; E66.9 Obesity, unspecified; Z68.38 Body mass index [BMI] 38.0-38.9, adult; E88.89 Other specified metabolic disorders; R10.9 Unspecified abdominal pain
CPT/HCPCS: 36415; 71275-TC; 74176-TC; 80053; 81003; 82550; 82962; 83690; 83735; 83880; 83993; 84100; 84443; 84484; 85025; 85027; 85379; 87040; 87045; 87046; 87177; 87209; 93005; 93010; 99285-25; J7030

== ENCOUNTER 2019-12-04 11:39 | Emergency (ER) | payer OTHER ==
[2019-12-04 12:23] VITALS: BMI 34.9
[2019-12-04] MEDS ORDERED: SODIUM CHLORIDE 0.9% 500 ML INFUS.BAG IV ONE (12:58)
[2019-12-04] MEDS ORDERED: ONDANSETRON 4 MG/2 ML VIAL IVPUSH ONE ×2 (12:59→17:09)
[2019-12-04] MEDS ORDERED: ACETAMINOPHEN 1000 MG/100 ML VIAL (NON FORMULARY) IVPB ONE (13:07)
[2019-12-04] MEDS ORDERED: FAMOTIDINE 20 MG/50 ML IVPB 20 MG/50 ML MG IVPB ONE ×2 (13:07→13:40)
[2019-12-04] MEDS ORDERED: SODIUM CHLORIDE 3,130 ML IV ONE (13:10)
--- NOTE | 2019-12-04 13:20 | PDOC ---
History of Present Illness - General Chief Complaint: Pain, Acute Stated Complaint: STOMACH PAIN Time Seen by Provider: 12/04/19 12:45 - History of Present Illness Initial Comments: 54M PMH HTN, HLD, NIIDM, and recurrent colitis presenting with constant nonradiating 9/10 abdomen pain that started at 4am today with associated n/v, PO intolerance, and chills. Denies cp/sob. Last BM today. No sx before today. No abdominal surgeries. Pt scheduled for CTA abdomen tomorrow to eval for ischemia. NKDA Past History - Past Medical History Allergies/Adverse Reactions: Allergies Allergy/AdvReac Type Severity Reaction Status Date / Time No Known Allergies Allergy Verified 12/04/19 12:17 Home Medications: Ambulatory Orders Albuterol Sulfate Inhaler - [Ventolin HFA Inhaler -] 1 - 2 inh PO Q4H 06/08/18 Aspirin [ASA -] 81 mg PO DAILY 06/08/18 Atorvastatin Ca [Lipitor] 10 mg PO HS 06/08/18 Hydrochlorothiazide [Hctz -] 25 mg PO DAILY 06/08/18 Lisinopril [Prinivil] 20 mg PO DAILY 06/08/18 metFORMIN HCL [Metformin HCl] 850 mg PO BID 06/08/18 Budesonide/Formeterol Fumarate [SYMBICORT 160/4.5mcg -] 2 puff IH BID inhaler 09/12/19 Ciprofloxacin [Cipro -] 500 mg PO Q12H #20 tablet 12/04/19 metroNIDAZOLE [Flagyl -] 500 mg PO TID #30 tablet 12/04/19 Anemia: No Asthma: Yes Cancer: No Cardiac Disorders: No CVA: No COPD: No CHF: No Dementia: No Diabetes: Yes Dialysis: Yes GI Disorders: Yes (DIVERTICULITIS, Colitis) Disorders: No HTN: Yes Hypercholesterolemia: Yes Liver Disease: No Seizures: No Thyroid Disease: No - Surgical History Abdominal Surgery: Yes Appendectomy: No Cardiac Surgery: No Cholecystectomy: No Lung Surgery: No Neurologic Surgery: No Orthopedic Surgery: Yes (LEFT KNEE ARTHROSCOPY) - Psycho Social/Smoking Cessation Hx Smoking History: Never smoked Have you smoked in the past 12 months: No If you are a former smoker, when did you quit?: many years ago Hx Alcohol Use: Yes (rare) Drug/Substance Use Hx: Yes (MARIJUANA) Substance Use Type: None Hx Substance Use Treatment: No Review of Systems - Review of Systems Able to Perform ROS?: Yes Comments:: CONSTITUTIONAL: endorses chills HEENT: Denies headache, lightheadedness, dizziness RESP: Denies SOB CARD: Denies chest pain, palpitations GI: endorses abdominal pain, n/v, po intolerance. : Denies dysuria SKIN: Denies rashes NEURO: Denies numbness, tingling, weakness MSK: Denies back pain *Physical Exam - Vital Signs Last Vital Signs Temp Pulse Resp BP Pulse Ox 98.3 F 51 L 34 H 135/84 99 12/04/19 12:21 12/04/19 12:21 12/04/19 12:21 12/04/19 12:21 12/04/19 12:21 - Physical Exam GEN: Moderate distress in pain. AAOx3. HEENT: NC/AT. No facial asymmetry. Normal voice. Supple neck w/ FROM. CV: S1/S2, RRR, no m/r/g LUNG: CTAB, no wheezes, crackles, rales, rhonchi. GI: +TTP LLQ, RLQ, RUQ. Soft, nd, +BS, no guarding, no rebound. No masses. MSK: No LE edema. No obvious deformities of all extremities. SKIN: Warm, dry, no rashes appreciated. PSYCH: Normal mood and affect. NEURO: Moving all extremities well. ED Treatment Course - LABORATORY CBC & Chemistry Diagram: 12/04/19 13:20 12/04/19 13:20 - RADIOLOGY Radiology Studies Ordered: Category Date Time Status ABDOMEN CTA W/WO CONTRAST [CT] Stat CT Scan 12/04/19 13:08 Ordered CHEST X-RAY PORTABLE* [RAD] Stat Radiology 12/04/19 12:57 Ordered Medical Decision Making - Medical Decision Making 12/04/19 13:16 54M PMH HTN, HLD, NIIDM, and recurrent colitis presenting with constant nonradiating abdomen pain w/ TTP of the LLQ, RLQ, and RUQ. +N/V. was scheduled for CTA tomorrow. DDx - colitis (infectious, ischemia), ulcer, pancreatitis, appendicitis - sepsis labs - pre-op labs - fluids - GI meds, pain control - CTA abdomen 12/04/19 14:23 labs reviewed wbc 11 lactic 2.5 f/u CTA 12/04/19 14:30 CXR report/image reviewed - no acute findings 12/04/19 14:43 pt feeling better s/p meds; pain has decreased and pt able to more comfortably move 12/04/19 18:16 CTA report reviewed - recurrent vs residual colitis abx sending abx to pharmacy GI, f/u DC home Discharge - Discharge Information Problems reviewed: Yes Clinical Impression/Diagnosis: Colitis Condition: Stable Disposition: HOME - Admission No - Additional Discharge Information Prescriptions: Ciprofloxacin [Cipro -] 500 mg PO Q12H #20 tablet metroNIDAZOLE [Flagyl -] 500 mg PO TID #30 tablet - Follow up/Referral Referrals: Thomas Brooks DO [Staff Physician] - Richar Montalvo MD [Staff Physician] - - Patient Discharge Instructions Patient Printed Discharge Instructions: DI for Colitis Additional Instructions: We sent antibiotics to your pharmacy, please pick them up and take as prescribed. One antibiotic is twice a day. The second antibiotic is three times a day. Take tylenol as instructed on the label for pain. You were provided a copy of your CAT scan results. Follow up with your GI doctor in the next 3-5 days, bring the CAT report and your discharge packet. Follow up with your primary care doctor in the next 7 days. We are referring you to Urology for follow up of a incidental finding on your CAT scan. You may call the number below to schedule an appointment. You may use any urologist in your network. Return to the nearest Emergency Department if you experience: - worsening or change in pain - inability to eat or drink - high fevers or chills - vomiting with blood - anything that concerns you - Post Discharge Activity Work/Back to School Note: Back to Work
[2019-12-04 13:39] LABS: BASO % 0.3 % (0-2.0); HEMATOCRIT 45.3 % (35.4-49); HEMOGLOBIN 15.6 GM/dL (11.7-16.9); LYMPH % 10.7 % (8-40); MCHC 34.5 g/dl (32.0-35.9); MEAN CELL VOLUME 87.1 fl (80-96); MONO % 1.8 % (3.8-10.2); NEUT % 87.2 % (42.8-82.8); PLATELET COUNT 306 K/MM3 (134-434); RDW 13.3 % (11.9-15.9); WHITE BLOOD COUNT 11.6 K/mm3 (4.0-10.0)
[2019-12-04] MEDS ORDERED: ONDANSETRON 4 MG/2 ML VIAL ONE ×2 (13:40→17:10)
[2019-12-04] MEDS ORDERED: ACETAMINOPHEN INJECTION 100 ML IVPB ONE (13:40)
[2019-12-04 13:42] LABS: VENOUS PC02 31.9 mmHg (38-52)
[2019-12-04 13:44] LABS: VENOUS PO2 < 49 mmHg (28-48)
[2019-12-04 13:50] LABS: INR 1.03 (0.83-1.09); PROTHROMBIN TIME (PATIENT) 12.2 SEC (9.7-13.0)
[2019-12-04 13:53] LABS: ACTIVATED PTT 33.5 SECONDS (25.2-36.5)
--- NOTE | 2019-12-04 14:05 | PDOC ---
Attending Attestation - Resident Resident Name: Vince Becerril - ED Attending Attestation I have performed the following: I have examined & evaluated the patient, The case was reviewed & discussed with the resident, I agree w/resident's findings & plan, Exceptions are as noted - HPI HPI: 12/04/19 14:02 54yoM hx of "colitis" unclear infx vs. isch presents c/o rlq abd pain x today. + vomiting, no fevers, no diarrhea, no prior abd surgeries. Pt is scheduled for CTA of A/P tomorrow as followup from prior colitis admission. - Physicial Exam PE: 12/04/19 14:03 NAD soft, mild ttp diffuse lower abd RLQ > LLQ, no guarding, no rebound. A&O x 3 - Medical Decision Making 12/04/19 14:03 54yoM c/o abd pain and vomiting x this morning, recent hxo f colitis. - labs - cta a/p today (instead of waiting for scheduled exam tomorrow) - ivf, pain control - reeval and dispo per results.
[2019-12-04 14:08] LABS: ALBUMIN 3.9 g/dl (3.4-5.0); BILIRUBIN,TOTAL 0.7 mg/dL (0.2-1); BLOOD UREA NITROGEN 16.9 mg/dL (7-18); CALCIUM 9.6 mg/dL (8.5-10.1); CREATININE 0.9 mg/dL (0.55-1.3); MAGNESIUM 1.7 mg/dL (1.8-2.4); POTASSIUM 3.5 mmol/L (3.5-5.1); TOT PROT 7.7 g/dl (6.4-8.2)
[2019-12-04 17:00] VITALS: PULSE 66; TEMP 98.4
[2019-12-04] MEDS ORDERED: CIPROFLOXACIN 500 MG TABLET (RESTRICTED TO ID) PO ONE (18:17)
[2019-12-04] MEDS ORDERED: metroNIDAZOLE 500 MG TABLET PO ONE (18:17)
[2019-12-04] MEDS ORDERED: metroNIDAZOLE 250 MG TABLET ONE (18:49)
[2019-12-04 19:31] VITALS: BP 127/77
--- NOTE | 2019-12-06 17:22 | EKG ---
Test Reason : Blood Pressure : / mmHG Vent. Rate : 045 BPM Atrial Rate : 045 BPM P-R Int : 146 ms QRS Dur : 106 ms QT Int : 524 ms P-R-T Axes : 046 066 071 degrees QTc Int : 453 ms SINUS BRADYCARDIA WITH SINUS ARRHYTHMIA OTHERWISE NORMAL ECG WHEN COMPARED WITH ECG OF 10-SEP-2019 22:38, NO SIGNIFICANT CHANGE WAS FOUND Confirmed by HENRI CASTELLANOS MD ([id number]) on 12/06/2019 5:22:28 PM Referred By: Confirmed By:HENRI CASTELLANOS MD
== END 2019-12-04 19:34 | disposition home or self-care (01) ==
LOC: JER 11:39
PROC: 3E0337Z Introduction of Electrolytic and Water Balance Substance into Peripheral Vein, Percutaneous Approach (ICD-10-PCS; principal; 2019-12-04)
PROC: 3E033GC Introduction of Other Therapeutic Substance into Peripheral Vein, Percutaneous Approach (ICD-10-PCS; 2019-12-04)
PROC: 3E033GC Introduction of Other Therapeutic Substance into Peripheral Vein, Percutaneous Approach (ICD-10-PCS; 2019-12-04)
PROC: 3E033NZ Introduction of Analgesics, Hypnotics, Sedatives into Peripheral Vein, Percutaneous Approach (ICD-10-PCS; 2019-12-04)
DX: K52.9 Noninfective gastroenteritis and colitis, unspecified (principal); I10 Essential (primary) hypertension; E78.00 Pure hypercholesterolemia, unspecified; E11.9 Type 2 diabetes mellitus without complications; Z79.84 Long term (current) use of oral hypoglycemic drugs; J45.909 Unspecified asthma, uncomplicated
CPT/HCPCS: 36415; 71045-TC-FY; 74174-TC; 80053; 82803; 83605; 83690; 83735; 83880; 85025; 85610; 85730; 86850; 86900; 86901; 87040; 93005; 93010; 99285-25; J0131; J7030; Q9967

== ENCOUNTER 2020-05-18 12:12 | Emergency (ER) | payer OTHER ==
[2020-05-18] MEDS ORDERED: SODIUM CHLORIDE 1,000 ML IV STA (12:20)
[2020-05-18] MEDS ORDERED: ONDANSETRON 4 MG/2 ML VIAL IVPUSH ONE (12:20)
[2020-05-18] MEDS ORDERED: ACETAMINOPHEN 1000 MG/100 ML VIAL (NON FORMULARY) IVPB ONE (12:20)
[2020-05-18] MEDS ORDERED: FAMOTIDINE 20 MG/50 ML IVPB 20 MG/50 ML MG IVPB ONE ×2 (12:21→14:23)
--- NOTE | 2020-05-18 12:21 | PDOC ---
Rapid Medical Evaluation Time Seen by Provider: 05/18/20 12:19 Medical Evaluation: Allergies Allergy/AdvReac Type Severity Reaction Status Date / Time No Known Allergies Allergy Verified 12/04/19 12:17 05/18/20 12:19 Pt presents with LUQ pain and diarrhea. Denies n/v. Endoscopy in December of this year Exam: Discomfort to the LUQ Orders: labs, IV, GI cocktail Pt to proceed to the ER for evaluation Discharge Disposition - Diagnosis Abdominal pain - Referrals - Patient Instructions - Post Discharge Activity
[2020-05-18 12:24] VITALS: BP 125/76; PULSE 73; TEMP 98.4; BMI 38.0
--- NOTE | 2020-05-18 13:51 | PDOC ---
History of Present Illness - General Chief Complaint: Pain Stated Complaint: STOMACH CRAMPING Time Seen by Provider: 05/18/20 12:19 History Source: Patient Exam Limitations: No Limitations - History of Present Illness Travel History: No Initial Comments: 05/18/20 13:46 HISTORY OF PRESENT ILLNESS: 55-year-old male past medical history of hypertension, diet-controlled diabetes, hyperlipidemia presents emergency department for evaluation of left upper quadrant pain and diarrhea over the past week. Patient reports the pain started in his left upper quadrant described as a burning sensation which was initially more intense rated 7/10 currently 4/10 b ut now concerned with having loose light brown stools over the past 2 to 3 days. Patient denies any nausea or vomiting. Patient denies any rectal bleeding. Patient reports he had endoscopy performed in February and was negative. No recent travel or sick contacts. PAST MEDICAL HISTORY: See HPI SURGICAL HISTORY: Denies ALLERGIES: No known drug allergies REVIEW OF SYSTEMS General/Constitutional: Denies fever or chills. Denies weakness, weight change. HEENT: Denies change in vision. Denies ear pain or discharge. Denies sore throat. Cardiovascular: Denies chest pain or shortness of breath. Respiratory: Denies cough, wheezing, or hemoptysis. Gastrointestinal: See HPI Genitourinary: Denies dysuria, frequency, or change in urination. Musculoskeletal: Denies joint or muscle swelling or pain. Denies neck or back pain. Skin and breasts: Denies rash or easy bruising. Neurologic: Denies headache, vertigo, loss of consciousness, or loss of sensation. Psychiatric: Denies depression or anxiety. Endocrine: Denies increased thirst. Denies abnormal weight change. Hematologic/Lymphatic: Denies anemia, easy bleeding, or history of blood clots. Allergic/Immunologic: Denies hives or skin allergy. Denies latex allergy. PHYSICAL EXAM General Appearance: Well-appearing, appropriately dressed. No apparent distress, no intoxication. Respiratory/Chest: Lungs CTAB. No shortness of breath, chest tenderness, respiratory distress, accessory muscle use. No crackles, rales, rhonchi, stridor, wheezing, dullness Cardiovascular: RRR. S1, S2. No JVD, murmur, bradycardia, tachycardia. Gastrointestinal/Abdominal: Normal bowel sounds. Abdomen soft, non-distended. No tenderness or rebound tenderness. No organomegaly, pulsatile mass, guarding, hernia, hepatomegaly, splenomegaly. Lymphatic: No adenopathy, tenderness. Past History - Medical History Allergies/Adverse Reactions: Allergies Allergy/AdvReac Type Severity Reaction Status Date / Time No Known Allergies Allergy Verified 12/04/19 12:17 Home Medications: Ambulatory Orders Aspirin [ASA -] 81 mg PO DAILY 06/08/18 Atorvastatin Ca [Lipitor] 10 mg PO HS 06/08/18 Cholecalciferol (Vitamin D3) [Vitamin D3] 10,000 unit PO DAILY 12/24/19 Budesonide/Formeterol Fumarate [SYMBICORT 160/4.5mcg -] 1 inh PO ASDIR 12/31/19 Lisinopril/Hydrochlorothiazide [Lisinopril-Hctz 20-25 mg Tab] 1 each PO DAILY 01/01/20 Anemia: No Asthma: Yes Cancer: No Cardiac Disorders: No CVA: No COPD: No CHF: No Dementia: No Diabetes: Yes (STOPPED MEDS 3 MONTHS AGO DUE LOW BLOOD SUGAR) Dialysis: Yes GI Disorders: Yes (RIGHT SIDED COLITIS) Disorders: No HTN: Yes Hypercholesterolemia: Yes Liver Disease: No Seizures: No Thyroid Disease: No - Surgical History Abdominal Surgery: Yes (RIGHT IGUINAL HERNIA REPAIR) Appendectomy: No Cardiac Surgery: No Cholecystectomy: No Lung Surgery: No Neurologic Surgery: No Orthopedic Surgery: Yes (LEFT KNEE ARTHROSCOPY) - Immunization History Immunization Up to Date: Yes - Psycho-Social/Smoking History Smoking History: Never smoked Have you smoked in the past 12 months: No If you are a former smoker, when did you quit?: 2019 - Substance Abuse Hx (Audit-C & DAST Scrn) How often the patient has a drink containing alcohol: Never Score: In Men: 4 or > Positive; In Women: 3 or > Positive: 0 Screen Result (Pos requires Nsg. Audit-10AR): Negative *Physical Exam - Vital Signs Last Vital Signs Temp Pulse Resp BP Pulse Ox 98.4 F 73 20 125/76 100 05/18/20 12:19 05/18/20 12:19 05/18/20 12:19 05/18/20 12:19 05/18/20 12:19 ED Treatment Course - LABORATORY CBC & Chemistry Diagram: 05/18/20 14:09 05/18/20 14:09 Medical Decision Making - Medical Decision Making 05/18/20 13:50 A/P: 55-year-old male with left upper quadrant abdominal pain and diarrhea for 1 week Abdominal exam is benign Symptoms are consistent with a gastroenteritis. Laboratory testing per [facility] GI cocktail I will defer imaging at this time given benign abdominal exam with low threshold to image pending laboratory testing. Reassess 05/18/20 15:28 Laboratory Tests 05/18/20 05/18/20 05/18/20 14:04 14:09 14:09 WBC 11.2 H RBC 4.87 Hgb 14.7 Hct 44.0 MCV 90.4 MCH 30.2 MCHC 33.4 RDW 13.9 Plt Count 271 MPV 8.1 Absolute Neuts (auto) 7.3 Neutrophils % 65.5 D Lymphocytes % 27.1 D Monocytes % 5.7 D Eosinophils % 1.2 D Basophils % 0.5 Nucleated RBC % 0 PT with INR 10.30 INR 0.87 Sodium Potassium Chloride Carbon Dioxide Anion Gap BUN Creatinine Est GFR (CKD-EPI)AfAm Est GFR (CKD-EPI)NonAf Random Glucose Lactic Acid Calcium Total Bilirubin AST ALT Alkaline Phosphatase Total Protein Albumin Lipase Urine Color Yellow Urine Appearance Clear Urine pH 5.0 Ur Specific [place] 1.012 Urine Protein Negative Urine Glucose (UA) Negative Urine Ketones Negative Urine Blood Negative Urine Nitrite Negative Urine Bilirubin Negative Urine Urobilinogen 0.2 Ur Leukocyte Esterase Negative 05/18/20 05/18/20 14:09 14:09 WBC RBC Hgb Hct MCV MCH MCHC RDW Plt Count MPV Absolute Neuts (auto) Neutrophils % Lymphocytes % Monocytes % Eosinophils % Basophils % Nucleated RBC % PT with INR INR Sodium 138 Potassium 4.0 Chloride 104 Carbon Dioxide 30 Anion Gap 4 L BUN 15.1 Creatinine 0.8 Est GFR (CKD-EPI)AfAm 118.20 Est GFR (CKD-EPI)NonAf 101.99 Random Glucose 123 H Lactic Acid 1.0 Calcium 9.0 Total Bilirubin 0.3 AST 11 L ALT 18 Alkaline Phosphatase 64 Total Protein 7.2 Albumin 3.7 Lipase 76 Urine Color Urine Appearance Urine pH Ur Specific [place] Urine Protein Urine Glucose (UA) Urine Ketones Urine Blood Urine Nitrite Urine Bilirubin Urine Urobilinogen Ur Leukocyte Esterase Patient reports resolution of symptoms after receiving GI cocktail and IV fluids. Laboratory testing was notable for leukocytosis of 11.2. There is no shift noted. Likely reactive. As patient symptoms have currently resolved I will discharge the patient home patient would likely gastroenteritis although he has not been vomiting. Patient has been instructed to follow-up with his primary doctor. I discussed the physical exam findings, ancillary test results and final diagnoses with the patient. I answered all of the patient's questions. The p marci was satisfied with the care received and felt comfortable with the discharge plan and treatment plan. The patient will call their primary care physician within 24 hours to arrange follow-up and will return to the Emergency Department with any new, persistent or worsening symptoms. Portions of this note have been documented using voice recognition software. As a result, errors may occur in the trimmer operator process. Effort has been made to correct all grammatical and trimmer operator error, but some may have been missed which may produce sporadic inaccurate trimmer operator or nonsensical phrases. Discharge - Discharge Information Problems reviewed: Yes Clinical Impression/Diagnosis: Gastroenteritis Condition: Stable Disposition: HOME - Admission No - Follow up/Referral Referrals: Emilie Rosenberg [Primary Care Provider] - - Patient Discharge Instructions Additional Instructions: Rest, drink lots of fluids: Teas, water, soups Xenia jmaie, carbonated beverages for the bubbles May try peppermint teas Avoid heavy , spicy or fatty foods until symptoms have resolved Avoid contact with others until fevers and symptoms resolved Lots of handwashing and good hygiene Continue [id number] medications for symptomatic relief Tylenol or Motrin for fever and pain Followup with private physician in one to 2 days as needed Return to emergency department for worsened symptoms, fevers, dehydration - Post Discharge Activity
[2020-05-18] MEDS ORDERED: ACETAMINOPHEN INJECTION 100 ML IVPB ONE (14:22)
[2020-05-18 14:44] LABS: BASO % 0.5 % (0-2.0); EOS % 1.2 % (0-4.5); HEMOGLOBIN 14.7 GM/dL (11.7-16.9); LYMPH % 27.1 % (8-40); MCH 30.2 pg (25.7-33.7); MCHC 33.4 g/dl (32.0-35.9); MEAN CELL VOLUME 90.4 fl (80-96); MEAN PLT VOLUME 8.1 fl (7.5-11.1); MONO % 5.7 % (3.8-10.2); NEUT % 65.5 % (42.8-82.8); PLATELET COUNT 271 K/MM3 (134-434); RBC 4.87 M/mm3 (4.00-5.60); RDW 13.9 % (11.9-15.9); WHITE BLOOD COUNT 11.2 K/mm3 (4.0-10.0)
[2020-05-18 14:55] LABS: URINE APPEARANCE CLEAR; URINE BILIRUBIN NEGATIVE (NEGATIVE); URINE COLOR YELLOW; URINE GLUCOSE (UA) NEGATIVE (NEGATIVE); URINE KETONE NEGATIVE (NEGATIVE); URINE LEUK ESTERASE NEGATIVE (NEGATIVE); URINE NITRITE NEGATIVE (NEGATIVE); URINE PROTEIN NEGATIVE (NEGATIVE); URINE UROBILINOGEN 0.2 mg/dL (0.2-1.0)
[2020-05-18 14:57] LABS: INR 0.87 (0.83-1.09); PROTHROMBIN TIME (PATIENT) 10.3 SEC (9.7-13.0)
[2020-05-18 15:21] LABS: ALBUMIN 3.7 g/dl (3.4-5.0); BILIRUBIN,TOTAL 0.3 mg/dL (0.2-1); BLOOD UREA NITROGEN 15.1 mg/dL (7-18); CREATININE 0.8 mg/dL (0.55-1.3); TOT PROT 7.2 g/dl (6.4-8.2)
== END 2020-05-18 15:33 | disposition home or self-care (01) ==
LOC: JER 12:12
PROC: 3E033NZ Introduction of Analgesics, Hypnotics, Sedatives into Peripheral Vein, Percutaneous Approach (ICD-10-PCS; principal; 2020-05-18)
PROC: 3E033GC Introduction of Other Therapeutic Substance into Peripheral Vein, Percutaneous Approach (ICD-10-PCS; 2020-05-18)
PROC: 3E0337Z Introduction of Electrolytic and Water Balance Substance into Peripheral Vein, Percutaneous Approach (ICD-10-PCS; 2020-05-18)
DX: K52.9 Noninfective gastroenteritis and colitis, unspecified (principal)
CPT/HCPCS: 36415; 80053; 81003; 83605; 83690; 85025; 85610; 99285-25; J0131

== ENCOUNTER 2020-12-08 04:19 | Day surgery (SDC) | payer OTHER ==
[2020-12-03 15:38] VITALS: BMI 37.2
[2020-12-08] MEDS ORDERED: PROPOFOL 20 ML ONE ×3 (10:58)
[2020-12-08] MEDS ORDERED: MIDAZOLAM HCL 2 MG/2 ML SINGLE DOSE VIAL ONE (10:58)
[2020-12-08] MEDS ORDERED: ACETAMINOPHEN 1000 MG/100 ML VIAL (NON FORMULARY) IVPB ONE (11:10)
[2020-12-08] MEDS ORDERED: ceFAZolin SODIUM 1 GM VIAL IVPB ONE (11:15)
[2020-12-08] MEDS ORDERED: DEXTROSE 5%-0.45% SALINE 1,000 ML IV SCH (11:15)
[2020-12-08] MEDS ORDERED: ACETAMINOPHEN INJECTION 100 ML IVPB ONE (12:22)
[2020-12-08] MEDS ORDERED: oxyCODONE HCL 5 MG TABLET PO PRN ×2 (12:23)
[2020-12-08] MEDS ORDERED: ONDANSETRON 4 MG/2 ML VIAL IVPUSH PRN (12:23)
[2020-12-08] MEDS ORDERED: LACTATED RINGERS SOLUTION 1,000 ML IV SCH (12:30)
[2020-12-08] MEDS ORDERED: IBUPROFEN 800 MG/8 ML IJ IVPB SCH (14:00)
[2020-12-08 14:41] VITALS: BP 117/77; PULSE 74; TEMP 97
== END 2020-12-08 14:10 | disposition home or self-care (01) ==
LOC: JASU-SURG 04:19
PROVIDERS: ATTEND Urology
PROC: 0T5B8ZZ Destruction of Bladder, Via Natural or Artificial Opening Endoscopic (ICD-10-PCS; principal; 2020-12-08 11:00)
DX: N30.30 Trigonitis without hematuria (principal); I10 Essential (primary) hypertension; E11.9 Type 2 diabetes mellitus without complications
CPT/HCPCS: 94760; J0131

== ENCOUNTER 2022-08-02 19:19 | Emergency (ER) | payer OTHER ==
[2022-08-02 19:25] VITALS: BP 184/110; PULSE 76; RESP 20; TEMP 97.7; BMI 38.7
== END 2022-08-02 20:54 | disposition home or self-care (01) ==
LOC: JERFT 19:19 → JER 19:19 → JERFT 20:54
DX: T80.90XA Unspecified complication following infusion and therapeutic injection, initial encounter (principal)
CPT/HCPCS: 73060-TC-LT-FY; 93005; 93010; 99284-25